=== PATIENT | male | born 1950 | race Hispanic/Latino ===

== ENCOUNTER 2022-10-08 06:25 | Day surgery (SDC) | payer OTHER ==
[2022-09-26 13:19] LABS: Absolute Lymphocytes (CBC) 1.8 K/uL (0.7-4.9); Hematocrit 43.1 % (39.6-49.0); Lymphocytes % 17.7 % (15.3-44.8); MCV 88.6 fL (80-100); MPV 9.3 fL (7.6-11.3); RBC Red Blood Cell Count 4.87 M/uL (4.33-5.43)
[2022-09-26 13:20] LABS: Protime INR 0.99
[2022-09-26 13:30] LABS: Potassium 3.8 mmol/L (3.5-5.1)
--- NOTE | 2022-09-26 14:07 | RAD REPORT ---
EXAM DESCRIPTION: RAD - Chest Pa And Lat (2 Views) - 09/26/2022 1:13 pm CLINICAL HISTORY: Pre op pending urolift COMPARISON: No comparisons FINDINGS: Lines: None. Lungs: No evidence of edema or pneumonia. Pleural: No significant pleural effusions or pneumothorax. Cardiac: The heart size is within normal limits. Mediastinum: Within normal limits. Bones: No acute fractures. Other: None IMPRESSION: No acute cardiopulmonary disease.
--- NOTE | 2022-10-01 14:36 | EKG ---
Test Date: 2022-09-26 Test Time: 12:42:29 [employer]: [facility]KS MEASUREMENT RESULTS: Intervals: Rate: 81 AK: 150 QRSD: 106 QT: 374 QTc: 434 [place]: P: 61 AK: 150 QRS: 16 T: 67 INTERPRETIVE STATEMENTS: Normal sinus rhythm Nonspecific T wave abnormality Abnormal ECG No previous ECG available for comparison Electronically Signed On 10-01-22 14:33:02 ORDNANCE TECHNICIAN by Nayan Urias
[2022-10-08] MEDS ORDERED: NA CHLORIDE 0.9% 1,000 ML ONE (06:55)
[2022-10-08] MEDS ORDERED: CEFAZOLIN SODIUM 1 GM/VIAL ONE (06:55)
[2022-10-08] MEDS ORDERED: LIDOCAINE 1% MPF 5 ML VIAL ONE (07:13)
[2022-10-08] MEDS ORDERED: propofoL 200 MG/20 ML VIAL IV ONE (07:13)
[2022-10-08] MEDS ORDERED: FENTANYL CITR 100 MCG/2 ML ONE (07:13)
[2022-10-08] MEDS ORDERED: CEFAZOLIN SODIUM 2 GM/VIAL ONE (07:36)
[2022-10-08] MEDS ORDERED: NS 0.9% VIAL 10 ML ONE (07:38)
[2022-10-08] MEDS ORDERED: KETOROLAC 30 MG/ML INJ ONE (07:47)
[2022-10-08] MEDS ORDERED: EPHEDRINE SULF 50 MG/ML VIAL ONE (08:07)
[2022-10-08] MEDS ORDERED: ONDANSETRON 4 MG/2 ML VIAL ONE (08:07)
[2022-10-08 08:49] VITALS: O2SAT 100
[2022-10-08] MEDS ORDERED: PHENAZOPYRIDINE 100MG TAB PO ONE ×2 (08:58→09:34)
[2022-10-08] MEDS ORDERED: CODEINE 30MG/APAP 300MG TAB PO PRN (08:58)
[2022-10-08 09:02] VITALS: TEMP 97.6
[2022-10-08 09:28] VITALS: BP 126/68
[2022-10-08] MEDS ORDERED: CODEINE 30MG/APAP 300MG TAB ONE (09:33)
--- NOTE | 2022-10-08 17:34 | OP ---
Surgeon: VIMAL COLMENARES Preoperative Diagnoses: 1.Benign prostatic hypertrophy with lower urinary tract obstruction and symptoms. 2.Large volume incomplete emptying/urinary retention. Postoperative Diagnoses: 1.Benign prostatic hypertrophy with lower urinary tract obstruction and symptoms. 2.Large volume, incomplete emptying/urinary retention. Principal Procedure: Prostatic urethral lift/UroLift with 7 implants placed, 4 on the left and 3 on the right. Indication For Procedure: Mr. Sparrow is a 72-year-old gentleman, who presented [facility] with bothersome urinary symptoms. 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 He was counseled on th e potential limited benefit to surgical therapy given the poor contractility of the bladder, but the potential benefit to reducing any component of prostatic urethral/outlet obstruction that may improve his symptoms and decrease his retention. He elected to proceed with your left. Procedure In Detail: The patient was consented in the preoperative holding area before being transfe rred to operative suite where general anesthesia was induced. He was given Ancef 2 g IV antimicrobia l prophylaxis, and pneumo boots were provided for DVT prophylaxis. He was placed in the lithotomy po sition, padded and secured to the table appropriately, and his genitalia were prepped with Hibiclens and draped in standard fashion. The case was begun using the [place] UroLift sheath and a visual o bturator to traverse the urethra and into the bladder with ease. Of note, there was no significant m edian lobar hypertrophy or intravesical projection. All of his obstruction was due to lateral lobar hypertrophy. As a result, targeting was initially performed by replacing the visual obturator with a UroLift delivery device and an implant. The first implant was targeted on the left side of the pros signh approximately 1.5 to 2 cm distal to the bladder neck. At about the 10 to 11 o'clock position, t he device was angled about 10 degrees laterally and the trigger pulled deploying the needle through t he surface of the prostate. An additional 10 degrees of compression was then performed to ensure del lorena of the needle all the way outside the capsular surface of the prostate. A second pull of the t riggered and then did partially retract the needle and deliver the capsular tab to the surface of the prostate. A third pole of the trigger further retracted the needle completely. I then angled the s cope back toward the midline and advanced it until the monofilament white line was centered in the de [place], and then I pulled the trigger the 4th time deploying the capsular tab and appropriately t ensioning the suture. The implant did seat very nicely with an at least 0.5 to 1 cm lip of prostate tissue between the implant and the entry into the bladder and appropriately lateralizing the tissue i n that location. As a result, I advanced the device back into the bladder and switched it for a new UroLift implant. A similar targeting was performed this time on the right side at the bladder neck 1 .5 to 2 cm distal to the bladder neck opening. This implant was similarly deployed and symmetrically positioned opening at the bladder neck nicely. I then turned my attention to the apex of the prosta te where an additional implant was placed on the left apical region at the level of the verumontanum between 10 and 11 o'clock. A 4th implant was placed at the level of the verumontanum. On the left s arthur, the implant was placed between 1 and 2 o'clock, whereas on the right side was placed between 10 and 11 o'clock. I then advanced the delivery device back into the bladder and switched for visual ob turator and surveyed the channel with his bladder decompressed. There was some residual lateral loba r urethral intrusion mostly coming from the left side between the apex and the bladder neck, so I kiara cted to place an additional implant on the left side and in the mid zone of that tissue. After that, the implant was successfully placed. I again surveyed the channel that had been created. There was still a little bit of residual lateral lobar tissue on the left side intruding into the urethral lum en with a smaller degree from the right side. As a result, I placed a 4th implant on the left side t his time more proximal toward the bladder neck, but between the bladder neck and the mid apical sewn implants. This did nicely lateralize that tissue and on survey of the channel, a 7th implant was the n placed on the right side between the apical and the bladder neck implants previously placed creatin g a nice continuous anterior channel with his bladder completely decompressed and the fluid off. In the end, the channel was very pleasing in appearance, and there was only minimal oozing. As a result , I filled his bladder with fluid and placed an 18[place] catheter with ease. 30 cc of sterile water was placed in the balloon, and the catheter was connected to a leg bag drainage. Complications: None. Discharge Disposition: He will be discharged with a catheter tonight and recommended to remove it to [facility] morning at 7 a.m. I then recommended he come by the office sometime between 1 o'clock and 2 o 'clock p.m. to check his bladder scan postvoid residual. Subsequent followup should be established p er routine in 1 month's time. BARRON/OPAL Voice ID: [id number] Report ID: [id number]
== END 2022-10-08 10:05 | disposition home or self-care (01) ==
LOC: OR 06:25
PROVIDERS: ATTEND Urology
PROC: 0T7D8DZ Dilation of Urethra with Intraluminal Device, Via Natural or Artificial Opening Endoscopic (ICD-10-PCS; principal; 2022-10-08 07:30)
DX: N40.1 Benign prostatic hyperplasia with lower urinary tract symptoms (principal); R33.9 Retention of urine, unspecified; N13.9 Obstructive and reflux uropathy, unspecified
CPT/HCPCS: 93005; 87088; 85025; 87086; 80048; 36415; 85610; 82947; 71046; 52441; 52442 ×6; J2704; J2001; J3010; A4216; J7030; J2405; J0690